=== PATIENT | male | born 1990 | race Hispanic/Latino ===

== ENCOUNTER 2025-02-23 11:46 | Emergency (ER) | payer OTHER, SELFPAY ==
[2025-02-23] VITALS (12 sets, daily range): BP systolic 113–138; BP diastolic 66–82; PULSE 62–80; RESP 10–20; TEMP 36.5; O2SAT 94–100; BMI 29.5
--- NOTE | 2025-02-23 12:03 | DI.CT.S_ITS ---
PROCEDURE: CT LUMBAR SPINE WO CON INDICATIONS: px post injury,month ago, made worse after exercise today TECHNIQUE: Noncontrast 3 mm thick sections acquired from the T12 level to the sacrum. Sagittal and coronal reformats were constructed. For radiation dose reduction, the following was used: automated exposure control. COMPARISON: None. FINDINGS: Image quality: Excellent. Bones: There is normal bony alignment. No acute vertebral body compression fractures. No suspicious lytic or blastic bony lesions. No pars defects. Soft tissues: No retroperitoneal masses or hematomas. Visualized aorta is normal in caliber. IMPRESSION: Normal lumbar spine. Dictated by: Glenna Turcios M.D. on 02/23/2025 at 11:54 Approved by: Glenna Turcios M.D. on 02/23/2025 at 11:56
--- NOTE | 2025-02-23 13:07 | ED_ITS ---
HPI - Back Pain/Injury <Cely Hyde PA-C - Last Filed: 02/23/25 19:12> General Chief Complaint: Back Pain/Injury Stated Complaint: Back pain Time Seen by Provider: 02/23/25 12:20 Source: EMS History of Present Illness HPI Narrative: Mr. Fournier is a very pleasant healthy 34-year-old male with a past medical history of right-sided sciatica who presents to the emergency department via EMS from work for low back pain. 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 One month ago he was doing a drill, dragging other people, when he developed acute pain of his right low back. This pain has continued over the last month however today while doing rope pulling drills at work, he developed severe acute pain of the right low back spreading down the lateral right leg and now also spreading to the left side of the low back as well which is new. He has no numbness tingling or weakness of the lower extremities however he does have severe pain with changing position from lying to sitting or sitting to standing. His position of comfort is lying flat. No bowel or bladder dysfunction. No history of IV drug use. No direct trauma to the back. No medications prior to arrival. No ETOH or drug use. Related Data Previous Rx's ?Medication ?Instructions ?Recorded oxycodone-acetaminophen 5 mg-325 1 tab PO Q6H PRN pain #20 tabs 02/23/25 mg tablet (Percocet) Allergies Allergy/AdvReac Type Severity Reaction Status Date / Time No Known Drug Allergies Allergy Verified 02/23/25 11:53 Review of Systems <Cely Hyde PA-C - Last Filed: 02/23/25 19:12> Review of Systems ROS Unobtainable: All systems reviewed & are unremarkable except as noted in HPI and below Patient History <Cely Hyde PA-C - Last Filed: 02/23/25 19:12> Social History Smoking Status: Never smoker Smoking Status: Never smoker Exam <Cely Hyde PA-C - Last Filed: 02/23/25 19:12> Narrative Exam Narrative: GENERAL: 34 year old patient appears stated age. Well-developed patient, in no acute distress, lying flat in stretcher. HEAD: Atraumatic. Normocephalic. EYES: No scleral icterus. No injection or drainage. NECK: Trachea midline. Cervical ROM intact. CARDIOVASCULAR: Regular rate and rhythm. RESPIRATORY: ?Nonlabored respirations. ?Speaking in clear, full sentences. ?Clear to auscultation. ? GASTROINTESTINAL: Abdomen soft, non-tender, nondistended. Patient declines rectal exam. EXTREMITIES: Sensation intact to light touch in the bilateral groin. No edema or joint tenderness. Strong DP and PT pulses bilaterally. 5/5 bilateral plantar and dorsiflexion strength intact. Sensation intact to light touch on bilateral plantar and dorsal aspect of the feet. BACK: No focal tenderness of midline spine. Patient does have subjective pain in the right paraspinal lumbar region, mid lumbar region. Positive right and left straight leg raise. NEURO: AOx3. ?Clear speech. ?Sensation intact to light touch throughout the bilateral lower extremities, no saddle anesthesia. SKIN: No rash or erythema of visible areas Initial Vital Signs Initial Vital Signs: Vital Signs Temperature 97.7 F 02/23/25 11:52 Pulse Rate 62 02/23/25 11:52 Respiratory Rate 14 02/23/25 11:52 Blood Pressure 138/66 02/23/25 11:52 Pulse Oximetry 100 02/23/25 11:52 Oxygen Delivery Method Room Air 02/23/25 11:52 <Autumn Giordano MD - Last Filed: 02/23/25 22:17> Initial Vital Signs Initial Vital Signs: Vital Signs Temperature 97.7 F 02/23/25 11:52 Pulse Rate 62 02/23/25 11:52 Respiratory Rate 14 02/23/25 11:52 Blood Pressure 138/66 02/23/25 11:52 Pulse Oximetry 100 02/23/25 11:52 Oxygen Delivery Method Room Air 02/23/25 11:52 Course <Cely Hyde PA-C - Last Filed: 02/23/25 19:12> Orders Ordered: ED Orders 02/23/25 18:28 XR pelvis 1-2V Stat Morphine Sulfate (Morphine 2 Mg/Ml Inj) 2 mg IV Q2HR PRN PRN Reason: Pain, Moderate (4-6) Last Admin: 02/23/25 15:49 Dose: 2 mg Documented By: Admin: 02/23/25 14:47 Dose: 2 mg Documented By: PRINCE Discontinued Medications Acetaminophen (Acetaminophen 325 Mg Tablet) 650 mg PO NOW ONE Stop: 02/23/25 13:29 Last Admin: 02/23/25 13:46 Dose: 650 mg Documented By: PRINCE Dexamethasone (Dexamethasone 10 Mg/Ml Vial) 10 mg IV NOW ONE Stop: 02/23/25 13:29 Last Admin: 02/23/25 13:52 Dose: 10 mg Documented By: PRINCE Diazepam (Diazepam 10 Mg/2 Ml Syringe) 2 mg IV NOW ONE Stop: 02/23/25 14:29 Last Admin: 02/23/25 14:47 Dose: 2 mg Documented By: PRINCE Diazepam (Diazepam 10 Mg/2 Ml Syringe) 2 mg IV NOW ONE Stop: 02/23/25 15:33 Last Admin: 02/23/25 15:46 Dose: 2 mg Documented By: PRINCE Hydromorphone HCl (Hydromorphone Hcl 0.5 Mg/0.5 Ml Syringe) 0.5 mg IV NOW ONE Stop: 02/23/25 17:12 Last Admin: 02/23/25 17:22 Dose: 0.5 mg Documented By: PRINCE Hydromorphone HCl (Hydromorphone 1 Mg Inj) 1 mg IV NOW ONE Stop: 02/23/25 19:06 Last Admin: 02/23/25 19:50 Dose: 1 mg Documented By: JOSE Ketorolac Tromethamine (Ketorolac 30 Mg/Ml Vial) 15 mg IV NOW ONE Stop: 02/23/25 13:29 Last Admin: 02/23/25 13:45 Dose: 15 mg Documented By: PRINCE Lidocaine (Lidocaine 5% Patch) 1 each TOP NOW ONE Stop: 02/23/25 13:29 Last Admin: 02/23/25 13:45 Dose: 1 each Documented By: PRINCE Morphine Sulfate (Morphine 4 Mg/Ml Inj) 4 mg IV NOW ONE Stop: 02/23/25 13:29 Last Admin: 02/23/25 13:46 Dose: 4 mg Documented By: PRINCE Oxycodone/Acetaminophen (Oxycodone/Acetaminophen 5/325 Tablet) 2 tab PO NOW ONE Stop: 02/23/25 19:06 Last Admin: 02/23/25 19:50 Dose: 2 tab Documented By: JOSE Vital Signs Vital signs: Vital Signs - 8 hr 02/23/25 15:00 02/23/25 17:18 02/23/25 17:30 Pulse Rate 65 73 69 Respiratory Rate 16 16 Blood Pressure 130/72 116/66 Pulse Oximetry 100 99 95 Oxygen Delivery Method Room Air Room Air Room Air 02/23/25 18:00 02/23/25 19:53 02/23/25 19:53 Pulse Rate 65 66 Respiratory Rate 10 L Blood Pressure 117/78 113/72 Pulse Oximetry 95 96 Oxygen Delivery Method Room Air 02/23/25 20:00 02/23/25 20:00 Pulse Rate 62 Respiratory Rate 10 L Blood Pressure 115/80 Pulse Oximetry 95 Oxygen Delivery Method Room Air <Autumn Giordano MD - Last Filed: 02/23/25 22:17> Orders Ordered: ED Orders 02/23/25 18:28 XR pelvis 1-2V Stat Morphine Sulfate (Morphine 2 Mg/Ml Inj) 2 mg IV Q2HR PRN PRN Reason: Pain, Moderate (4-6) Last Admin: 02/23/25 15:49 Dose: 2 mg Documented By: Admin: 02/23/25 14:47 Dose: 2 mg Documented By: PRINCE Discontinued Medications Acetaminophen (Acetaminophen 325 Mg Tablet) 650 mg PO NOW ONE Stop: 02/23/25 13:29 Last Admin: 02/23/25 13:46 Dose: 650 mg Documented By: PRINCE Dexamethasone (Dexamethasone 10 Mg/Ml Vial) 10 mg IV NOW ONE Stop: 02/23/25 13:29 Last Admin: 02/23/25 13:52 Dose: 10 mg Documented By: PRINCE Diazepam (Diazepam 10 Mg/2 Ml Syringe) 2 mg IV NOW ONE Stop: 02/23/25 14:29 Last Admin: 02/23/25 14:47 Dose: 2 mg Documented By: PRINCE Diazepam (Diazepam 10 Mg/2 Ml Syringe) 2 mg IV NOW ONE Stop: 02/23/25 15:33 Last Admin: 02/23/25 15:46 Dose: 2 mg Documented By: PRINCE Hydromorphone HCl (Hydromorphone Hcl 0.5 Mg/0.5 Ml Syringe) 0.5 mg IV NOW ONE Stop: 02/23/25 17:12 Last Admin: 02/23/25 17:22 Dose: 0.5 mg Documented By: PRINCE Hydromorphone HCl (Hydromorphone 1 Mg Inj) 1 mg IV NOW ONE Stop: 02/23/25 19:06 Last Admin: 02/23/25 19:50 Dose: 1 mg Documented By: JOSE Ketorolac Tromethamine (Ketorolac 30 Mg/Ml Vial) 15 mg IV NOW ONE Stop: 02/23/25 13:29 Last Admin: 02/23/25 13:45 Dose: 15 mg Documented By: PRINCE Lidocaine (Lidocaine 5% Patch) 1 each TOP NOW ONE Stop: 02/23/25 13:29 Last Admin: 02/23/25 13:45 Dose: 1 each Documented By: PRINCE Morphine Sulfate (Morphine 4 Mg/Ml Inj) 4 mg IV NOW ONE Stop: 02/23/25 13:29 Last Admin: 02/23/25 13:46 Dose: 4 mg Documented By: PRINCE Oxycodone/Acetaminophen (Oxycodone/Acetaminophen 5/325 Tablet) 2 tab PO NOW ONE Stop: 02/23/25 19:06 Last Admin: 02/23/25 19:50 Dose: 2 tab Documented By: JOSE Vital Signs Vital signs: Vital Signs - 8 hr 02/23/25 15:00 02/23/25 17:18 02/23/25 17:30 Pulse Rate 65 73 69 Respiratory Rate 16 16 Blood Pressure 130/72 116/66 Pulse Oximetry 100 99 95 Oxygen Delivery Method Room Air Room Air Room Air 02/23/25 18:00 02/23/25 19:53 02/23/25 19:53 Pulse Rate 65 66 Respiratory Rate 10 L Blood Pressure 117/78 113/72 Pulse Oximetry 95 96 Oxygen Delivery Method Room Air 02/23/25 20:00 02/23/25 20:00 Pulse Rate 62 Respiratory Rate 10 L Blood Pressure 115/80 Pulse Oximetry 95 Oxygen Delivery Method Room Air MDM - Back Pain/Injury <Cely Hyde PA-C - Last Filed: 02/23/25 19:12> Imaging Data CT Lumbar: Radiologist's Impression: PROCEDURE: CT LUMBAR SPINE WO CON INDICATIONS: px post injury,month ago, made worse after exercise today TECHNIQUE: Noncontrast 3 mm thick sections acquired from the T12 level to the sacrum. Sagittal and coronal reformats were constructed. For radiation dose reduction, the following was used: automated exposure control. COMPARISON: None. FINDINGS: Image quality: Excellent. Bones: There is normal bony alignment. No acute vertebral body compression fractures. No suspicious lytic or blastic bony lesions. No pars defects. Soft tissues: No retroperitoneal masses or hematomas. Visualized aorta is normal in caliber. IMPRESSION: Normal lumbar spine. Dictated by: Glenna Turcios M.D. on 02/23/2025 at 11:54 Approved by: Glenna Turcios M.D. on 02/23/2025 at 11:56 Pelvis XR: Radiologist's Impression: PROCEDURE: XR PELVIS 1-2V INDICATIONS: low back pain; BL hip pain worse R hip TECHNIQUE: A single view(s) of the pelvis acquired. COMPARISON: None. FINDINGS: Bones: No fractures or dislocations. No suspicious bony lesions. Soft tissues: Visualized bowel gas pattern is normal. No suspicious soft tissue calcifications. IMPRESSION: No acute bony abnormality. Dictated by: Glenna Turcios M.D. on 02/23/2025 at 17:53 Approved by: Glenna Turcios M.D. on 02/23/2025 at 17:54 MDM Narrative Medical decision making narrative: 34-year-old male with a past medical history of right-sided sciatica who pre sents to the emergency department via EMS from work for low back pain. Differential diagnosis includes but isn't limited to lumbar radiculopathy, bulging disc, herniated disc, spinal stenosis, degenerative disc disease, muscle strain, lumbar strain, etc. On exam patient is in no acute distress, nontoxic-appearing, all vital signs within normal limits. He has minimal pain while lying flat in the stretcher however has severe pain with any attempt at position change. No tenderness to palpation of mid spine however he does have subjective pain in the mid lumbar spine region and pain radiating to the right paraspinal region and down the lateral right leg. Bilateral lower extremities are neurovascularly intact. No bowel or bladder incontinence or dysfunction, no saddle anesthesia, no history of IV drug use or direct trauma to the back. CT lumbar spine was obtained, we will treat pain with morphine, Toradol, Decadron, tylenol, Lidoderm. 1325: Discussed CT lumbar imaging with radiologist Dr. Turcios, as scan was read as normal however I do see what appears to be some disc bulging between L4- L5, L3-L4. Dr. Turcios states that in her practice she does not comment on intervertebral discs on CT reports and that it is a normal lumbar spine, finding relayed to patient. Patient is still having pain after initial medication regimen, reluctant to get up and move, we will treat with the additional morphine and Valium as well. 1730: Patient has received additional pain medication, recently received 0.5 mg of IV Dilaudid. Patient is still unable to stand and ambulate independently due to the pain. Postvoid residual bladder scan was obtained and was 0. 1830: On reassessment of patient, states that he had minimal pain relief immediately after Dilaudid however pain is back, still severe, still unable to stand out of bed. He is also reporting pain focally to the right hip, pelvic x- ray ordered as well. MRI is not available at this time for more advanced imaging. I will consult with the attending ED physician for further management. 1900: Discussed case with ED attending physician, Dr. Giordano. We will increase patient's pain medication using 1 mg of Dilaudid and 2 oxycodone-acetaminophen. Patient is agreeable to this plan, he will be transferred to the main emergency department for further management due to shift change. <Autumn Giordano MD - Last Filed: 02/23/25 22:17> [facility] Narrative Medical decision making narrative: 34-year-old male with a past medical history of right-sided sciatica who presents to the emergency department via EMS from work for low back pain. Differential diagnosis includes but isn't limited to lumbar radiculopathy, bulging disc, herniated disc, spinal stenosis, degenerative disc disease, muscle strain, lumbar strain, etc. On exam patient is in no acute distress, nontoxic-appearing, all vital signs within normal limits. He has minimal pain while lying flat in the stretcher however has severe pain with any attempt at position change. No tenderness to palpation of mid spine however he does have subjective pain in the mid lumbar spine region and pain radiating to the right paraspinal region and down the lateral right leg. Bilateral lower extremities are neurovascularly intact. No bowel or bladder incontinence or dysfunction, no saddle anesthesia, no history of IV drug use or direct trauma to the back. CT lumbar spine was obtained, we will treat pain with morphine, Toradol, Decadron, tylenol, Lidoderm. 1325: Discussed CT lumbar imaging with radiologist Dr. Turcios, as scan was read as normal however I do see what appears to be some disc bulging between L4- L5, L3-L4. Dr. Turcios states that in her practice she does not comment on intervertebral discs on CT reports and that it is a normal lumbar spine, finding relayed to patient. Patient is still having pain after initial medication regimen, reluctant to get up and move, we will treat with the additional morphine and Valium as well. 1730: Patient has received additional pain medication, recently received 0.5 mg of IV Dilaudid. Patient is still unable to stand and ambulate independently due to the pain. Postvoid residual bladder scan was obtained and was 0. 1830: On reassessment of patient, states that he had minimal pain relief imm ediately after Dilaudid however pain is back, still severe, still unable to stand out of bed. He is also reporting pain focally to the right hip, pelvic x- ray ordered as well. MRI is not available at this time for more advanced imaging. I will consult with the attending ED physician for further management. 1900: Discussed case with ED attending physician, Dr. Giordano. We will increase patient's pain medication using 1 mg of Dilaudid and 2 oxycodone-acetaminophen. Patient is agreeable to this plan, he will be transferred to the main emergency department for further management due to shift change. 10pm care assumed, patient evaluated independently, chart is reviewed. After doses of pain medication enough to actually get on top of his pain he is doing somewhat better. He is able to ambulate with a walker. We discussed pain medicine for home discharge, he has an appointment with his doctor tomorrow to talk about his back pain. I did encourage him to try to keep this appointment. We will also give him information to follow up with [facility] should he prefer to do that. Again reviewed with him that an emergent MRI for pain only in the absence of acute weakness or other neurologic findings is not going to be helpful. Currently no evidence of cauda equina syndrome, I am not suspicious for an epidural abscess or hematoma. I believe this likely is musculoskeletal and chronic disc disease causing his pain. Imaging studies are all sent with him to share with his providers that he is planning to see tomorrow. He is safe for discharge Discharge Plan Departure Patient Disposition: Home Clinical Impression: Low back pain Qualifiers: Chronicity: acute Back pain laterality: right Sciatica presence: with sciatica Sciatica laterality: sciatica of right side Qualified Code(s): M54.41 - Lumbago with sciatica, right side Strain of lumbar region Qualifiers: Encounter type: initial encounter Qualified Code(s): S39.012A - Strain of muscle, fascia and tendon of lower back, initial encounter Instructions: DI for Back Strain or Sprain Activity Restrictions/Additional Instructions: I am sorry that you are suffering with these low back complaints With your exam today, I am not seeing anything that looks like an acute neurologic emergency that would require urgent surgery. That is the only reason that an MRI would be indicated at this time. We did do CT scans and a pelvis x-ray to make sure that there there was no evidence of compression fracture or other bony component to her pain. Both of the studies were unremarkable. For pain control you received Toradol, diazepam, Dilaudid, dexamethasone, morphine and oxycodone. Using a walker I think is going to be helpful for couple of days until the acute spasm improves somewhat. We talked about using pain medications. Using 400 mg of ibuprofen (2 [id number] pills) and 1 Tylenol every 6 hours can be very helpful in controlling pain. For severe pain using 400 mg of ibuprofen and 1-2 Percocet we will be appropriate. I will give you a couple of Percocet to take home with you in the remainder of the prescription will be electronically transmitted to [facility] in [place]. Percocet is a narcotic, does have a potential for addiction and absolutely will cause constipation particularly when you were hurting as much as you are. 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 I would encourage you to keep this appointment. If you would like to schedule a follow up appointment with [facility] you can contact their office at [phone] If you find that you are getting worse or develop any new symptoms, please feel free to return to the emergency department for further evaluation. Prescriptions: New oxycodone-acetaminophen [Percocet] 5-325 mg tablet 1 tab PO Q6H PRN (Reason: pain) Qty: 20 0RF Stand Alone Forms: Patient Portal/API
[2025-02-23] MEDS: KETOROLAC 30 MG/ML VIAL 15 MG IV (13:45)
[2025-02-23] MEDS: LIDOCAINE 5% PATCH 1 EACH TOP (13:45)
[2025-02-23] MEDS: MORPHINE 4 MG/ML INJ IV (13:46)
[2025-02-23] MEDS: ACETAMINOPHEN 325 MG TABLET 650 MG PO (13:46)
[2025-02-23] MEDS: DEXAMETHASONE 10 MG/ML VIAL IV (13:52)
[2025-02-23] MEDS: MORPHINE 2 MG/ML INJ IV ×2 (14:47→15:49)
--- NOTE | 2025-02-23 15:33 | PC.NURSE ---
Patient endorses that they are still in 6/10 back pain, theyre unable to move off the bed to ambulate. Provider Cely Hyde verbal orders 2mg valium and 2mg more of morphine now, see MAR
--- NOTE | 2025-02-23 18:28 | DI.RAD.S_ITS ---
PROCEDURE: XR PELVIS 1-2V INDICATIONS: low back pain; BL hip pain worse R hip TECHNIQUE: A single view(s) of the pelvis acquired. COMPARISON: None. FINDINGS: Bones: No fractures or dislocations. No suspicious bony lesions. Soft tissues: Visualized bowel gas pattern is normal. No suspicious soft tissue calcifications. IMPRESSION: No acute bony abnormality. Dictated by: Glenna Turcios M.D. on 02/23/2025 at 17:53 Approved by: Glenna Turcios M.D. on 02/23/2025 at 17:54
[2025-02-23] MEDS: OXYCODONE/ACETAMINOPHEN 5/325 TABLET 2 TAB PO (19:50)
[2025-02-23] MEDS: HYDROMORPHONE 1 MG INJ IV (19:50)
--- NOTE | 2025-02-23 22:18 | PC.NURSE ---
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 Patient walked slowly but with a steady gait.
[2025-02-23] MEDS: OXYCODONE/APAP 5/325 PREPACK 1 BOTTLE MISC (22:22)
== END 2025-02-23 22:34 | disposition home or self-care (01) ==
PROVIDERS: Emergency Provider Emergency Medicine
DX: S39.012A Strain of muscle, fascia and tendon of lower back, initial encounter (principal); M54.41 Lumbago with sciatica, right side
CPT/HCPCS: 51798; 72131; 72170; 96374; 96375; 96376; 99284; J1100; J1171; J1885; J2270; J3360

== ENCOUNTER → 2025-02-27 19:25 | Outpatient (CLI) | payer OTHER, SELFPAY ==
--- NOTE | 2025-02-27 19:32 | DI.MRI.S_ITS ---
PROCEDURE: MR LUMBAR SPINE WO CON INDICATIONS: BACK PAIN TECHNIQUE: Noncontrast sagittal T1 spin echo and T2 fast echo, sagittal STIR, and T2 fast spin echo through the lumbar spine. In cases with scoliosis, additional coronal T2 fast spin echo may be performed. COMPARISON: CT lumbar spine 02/23/2025. FINDINGS: Image quality: There is extensive patient motion artifact which significantly degrades imaging, particularly the axial sequences which are nondiagnostic. Alignment and Curvature: There is normal bony alignment. Bone Marrow: Marrow is of normal overall signal. No acute vertebral body compression fractures. Spinal Cord: Conus medullaris terminates at the L1 level. Visualized cord demonstrates normal signal and size. Paraspinous Soft Tissues: No paravertebral masses. T12-L1: Normal appearance. L1-L2: Normal appearance. L2-L3: Normal appearance. L3-L4: Shallow disc bulge with mild facet arthropathy results and moderate right and mild left foraminal stenosis. L4-L5: Mild central canal stenosis with moderate bilateral foraminal stenosis. L5-S1: Shallow disc bulge with endplate spurring results in moderate left foraminal stenosis and mild right foraminal stenosis without central canal stenosis. IMPRESSION: Limited exam of which shows lower lumbar spondylosis with varying degrees of foraminal stenosis and mild central canal stenosis at the L4-L5 level. Dictated by: Taylor Alejandre M.D. on 02/28/2025 at 8:38 Approved by: Taylor Alejandre M.D. on 02/28/2025 at 8:43
== END ==
DX: M47.26 Other spondylosis with radiculopathy, lumbar region (principal); M48.061 Spinal stenosis, lumbar region without neurogenic claudication; M54.50 Low back pain, unspecified
CPT/HCPCS: 72148

== ENCOUNTER 2025-04-13 11:34 | Emergency (ER) | payer OTHER, SELFPAY ==
[2025-04-13 11:44] VITALS: BP 157/92; PULSE 72; RESP 16; TEMP 36.7; O2SAT 98; BMI 31.0
--- NOTE | 2025-04-13 12:18 | ED.RECABL ---
HPI - Recheck/Abnormal Lab/Rx General Chief Complaint: Recheck/Abnormal Lab/Rx Stated Complaint: shingles [place] from [facility] sent Time Seen by Provider: 04/13/25 12:15 Source: patient Mode of arrival: Ambulatory History of Present Illness HPI narrative: Patient is a 34-year-old healthy male presenting to day with shingles. He reports he has diagnosis shingles 2 days ago. He started having neck pain around the 07 of April and then the or 10 of April started noticing a rash. He was seen and evaluated at a walk-in clinic in the and was given prescriptions. He tried to fill the prescriptions yesterday he says something was wrong pharmacy would not accept his insurance he was told to come to the ER and be re-evaluated. He reports pretty significant pain. His starting on the left side of his arm and going down to his hand. He did report some weakness in his hand but he says that is better now. No fever or chills. He is only taking Tylenol and ibuprofen for pain but reports significant pain and he is not sleeping. Related Data Previous Rx's ?Medication ?Instructions ?Recorded oxycodone-acetaminophen 5 mg-325 1 tab PO Q6H PRN pain #20 tabs 02/23/25 mg tablet (Percocet) acyclovir 800 mg tablet 800 mg PO 5XD #35 tabs 04/13/25 hydrocodone 5 mg-acetaminophen 325 1 tab PO Q6H PRN pain #10 tabs 04/13/25 mg tablet Allergies Allergy/AdvReac Type Severity Reaction Status Date / Time No Known Drug Allergies Allergy Verified 04/13/25 11:48 Patient History Smoking Status: Current every day smoker tobacco type: smokeless tobacco Exam Initial Vital Signs Initial Vital Signs: Vital Signs Temperature 98.1 F 04/13/25 11:44 Pulse Rate 72 04/13/25 11:44 Respiratory Rate 16 04/13/25 11:44 Blood Pressure 157/92 H 04/13/25 11:44 Pulse Oximetry 98 04/13/25 11:44 Oxygen Delivery Method Room Air 04/13/25 11:44 GENERAL: Well-appearing, well-nourished and in no acute distress. CARDIOVASCULAR: peripheral pulses in tact, cap refill <2 sec RESPIRATORY: No respiratory distress, speaks in full sentences without difficulty EXTREMITIES: Normal range of motion, no clubbing or edema. Neurovascularly intact NEUROLOGICAL: Cranial nerves II through XII grossly intact. Normal gait and speech. SKIN: Vesicular rash down left arm does not cross midline in C6 dermatome. Course Vital Signs Vital signs: Vital Signs - 8 hr 04/13/25 11:44 Temperature 98.1 F Pulse Rate 72 Respiratory Rate 16 Blood Pressure 157/92 H Pulse Oximetry 98 Oxygen Delivery Method Room Air MDM - Recheck/Abnormal Lab/Rx MDM Narrative Medical decision making narrative: Patient here with diagnosis of shingles which I agree with. He clearly has a vesicular rash going down 1 dermatome. No significant weakness appreciated in his hand. No surrounding cellulitis vitals are stable. He is immunocompetent without any high-risk factors. Given 1st dose of acyclovir here in the ED since he is having difficulty with insurance. Prescriptions are printed for him. Discharge Plan Departure Patient Disposition: Home Clinical Impression: Shingles Instructions: DI for Shingles Activity Restrictions/Additional Instructions: *You have been diagnosed with shingles *What to do: At this time this will take a couple of weeks to fully heal, you will have to talk to work about returning usually it is when the rash has disappeared *Continue to take medications as directed Acyclovir 800 mg 5 times a day for 7 days [place] 1 tablets every 6 hours or at nighttime for severe Tylenol may take 1000 mg at a time but do not exceed more than 4000 mg in 24 hours, do not combine this with [place] Motrin 600 mg every 6 hours for [id number] pain *Follow up with your primary care provider in 2-3 days or call [phone] *Return to ER if you should have increasing redness fever pain weakness or any new, worsening or concerning symptoms CONTROLLED SUBSTANCE DISCHARGE (Narcotoic/benzodiazepine/Flexeril/Phenergan) 1. You have been prescribed narcotic medications, it does have acetaminophen/Tylenol/paracetamol in it, DO NOT TAKE MORE THAN 4,00mg in 24 hours of Tylenol. TRAMADOL DOES NOT CONTAIN TYLENOL 2. Please understand that we cannot provide further refills of narcotics, benzodiazepines or controlled substances through the ED and her pain management will need to be through your provider. 3. While on these medications you cannot drive or operate heavy machinery. 4. You cannot sign legal documents or perform any duties such as this. 5. As long as you're taking opiate pain medications he should also be taking a stool softener such as Colace, Dulcolax, MiraLAX or prune juice, to help avoid constipation. Prescriptions: New acyclovir 800 mg tablet 800 mg PO 5XD Qty: 35 0RF Rx Instructions: space evenly during waking hours hydrocodone-acetaminophen 5-325 mg tablet 1 tab PO Q6H PRN (Reason: pain) Qty: 10 0RF No Action oxycodone-acetaminophen [Percocet] 5-325 mg tablet 1 tab PO Q6H PRN (Reason: pain) Qty: 20 0RF Stand Alone Forms: Patient Portal/API
[2025-04-13] MEDS: ACYCLOVIR 400 MG TABLET 800 MG PO (12:38)
[2025-04-13 12:44] VITALS: BP 157/92; PULSE 70; RESP 16; O2SAT 96
== END 2025-04-13 12:44 | disposition home or self-care (01) ==
PROVIDERS: Emergency Provider Emergency Medicine
DX: B02.9 Zoster without complications (principal)
CPT/HCPCS: 99283

== ENCOUNTER → 2025-05-28 09:32 | Outpatient (CLI) | payer OTHER, SELFPAY ==
[2025-05-28 10:42] LABS: Natera Collection Specimen Collected
== END ==
PROVIDERS: Visit Provider Student in an Organized Health Care Education/Training Program
DX: Z31.440 Encounter of male for testing for genetic disease carrier status for procreative management (principal); Z13.71 Encounter for nonprocreative screening for genetic disease carrier status
CPT/HCPCS: 36415